=== PATIENT | female | born 1975 | race Caucasian/White ===

== ENCOUNTER 2022-06-20 14:36 | Emergency (ER) | payer SELFPAY | END 2022-06-20 18:35 | disposition home or self-care (01) | LOC: CSHERS 14:36 | DX: L90.5 Scar conditions and fibrosis of skin (principal); F17.210 Nicotine dependence, cigarettes, uncomplicated | CPT/HCPCS: 99283 ==

== ENCOUNTER 2023-04-28 02:18 | Emergency (ER) | payer SELFPAY ==
[2023-04-28 03:24] LABS: SARS-CoV-2 NAA Rapid Test Not Detected (NotDetected)
== END 2023-04-28 02:56 | disposition home or self-care (01) ==
LOC: CSHERS 02:18
DX: J06.9 Acute upper respiratory infection, unspecified (principal); F17.210 Nicotine dependence, cigarettes, uncomplicated
CPT/HCPCS: 99283